=== PATIENT | female | born 1975 | race Two or more races ===

== ENCOUNTER 2017-10-29 06:36 | Day surgery (SDC) | payer OTHER ==
[~2017-10-29] VITALS: Ht 154.9 cm; Wt 57.6 kg
[2017-10-29 07:01] VITALS: BP 126/66
[2017-10-29 09:58] VITALS: BP 110/60
== END 2017-10-29 09:45 | disposition home or self-care (01) ==
LOC: DS 06:36 → OR 07:30 → DS 07:30
PROVIDERS: Anesthesiology Pain Medicine
PROC: 3E0R3BZ Introduction of Anesthetic Agent into Spinal Canal, Percutaneous Approach (ICD-10-PCS; 2017-10-29)
PROC: B01B1ZZ Fluoroscopy of Spinal Cord using Low Osmolar Contrast (ICD-10-PCS; 2017-10-29)
PROC: 3E0R33Z Introduction of Anti-inflammatory into Spinal Canal, Percutaneous Approach (ICD-10-PCS; principal; 2017-10-29 07:30)
DX: M50.10 Cervical disc disorder with radiculopathy, unspecified cervical region (principal); R20.8 Other disturbances of skin sensation; R20.2 Paresthesia of skin; M47.816 Spondylosis without myelopathy or radiculopathy, lumbar region; M51.26 Other intervertebral disc displacement, lumbar region; M54.6 Pain in thoracic spine; E03.9 Hypothyroidism, unspecified
CPT/HCPCS: 77003; J1100; J2001; J2250; J3010; J3490; J7040

== ENCOUNTER → 2019-06-17 | Outpatient (CLI) | payer OTHER | END | disposition home or self-care (01) | LOC: MI 13:00 | PROC: BR30ZZZ Magnetic Resonance Imaging (MRI) of Cervical Spine (ICD-10-PCS; principal; 2019-06-17) | DX: M54.2 Cervicalgia (principal); M48.02 Spinal stenosis, cervical region ==